=== PATIENT | female | born 1975 | race Caucasian/White ===

== ENCOUNTER 2016-04-27 10:45 | Emergency (ER) | payer OTHER ==
[~2016-04-27 10:45] MED LIST: AUGMENTIN 875-1 EACH PO; BACTRIM DS TAB1 EACH PO; CYMBALTA60 MG PO; LISINOPRIL-HCT1 EAC1 PO; NORCO 5-325 TA1 EACH PO; ROBAXIN 750 MG750 MG PO; TOPROL XL25 MG PO
== END 2016-04-27 13:10 | disposition home or self-care (01) ==
LOC: ER1 10:45
DX: M62.838 Other muscle spasm (principal); T78.40XA Allergy, unspecified, initial encounter; I10 Essential (primary) hypertension; F17.200 Nicotine dependence, unspecified, uncomplicated
CPT/HCPCS: 96372; 99283; J1030; J1200